=== PATIENT | male | born 1965 | race Caucasian/White ===

== ENCOUNTER → 2023-05-04 12:48 | Outpatient (CLI) | payer OTHER, SELFPAY ==
--- NOTE | ~2023-05-04 | CT_ITS ---
CT of the Abdomen and Pelvis: Indication: Hematuria Technique: 2.5 mm axial scans were obtained through the abdomen and pelvis prior to and following in travenous administration of 130 cc of Omnipaque 350. Dose reduction technique was used on this scan b y utilizing automated exposure control and iterative reconstruction technique. The dose-length produc t (DLP) was 1542.03 mGy-cm. Findings: Scans through the lung bases are unremarkable. The liver, spleen, pancreas, gallbladder, and adrenal glands are within normal limits. There is sever e bilateral hydroureteronephrosis, right worse than left, with tortuosity of the ureters. There is a small nonobstructing stone at the right upper pole on precontrast images. No evidence of aortic aneur ysm. No lymphadenopathy. No bowel obstruction or bowel wall thickening. There is no evidence to suggest acute appendicitis. Images through the pelvis were performed. Urinary bladder is markedly distended, with mild diffuse bl adder wall thickening/irregularity. Prostate gland is markedly enlarged with extensive indentation th rough the bladder base. No ascites. Impression: Severe bilateral hydroureteronephrosis with tortuous ureters, as well as distended urinary bladder wi th diffuse bladder wall trabeculation. Findings are likely related to chronic bladder obstruction. Markedly enlarged prostate gland, with extensive indentation through the bladder base. Small nonobstructing right renal stone. Reviewed, dictated and finalized at [facility]. [employer] Impression: Severe bilateral hydroureteronephrosis with tortuous ureters, as well as disten ded urinary bladder with diffuse bladder wall trabeculation. Findings are likel y related to chronic bladder obstruction. Markedly enlarged prostate gland, with extensive indentation through the bladde r base. Small nonobstructing right renal stone.
== END ==
PROVIDERS: PCP Family Medicine; Visit Provider Nurse Practitioner Family
DX: R31.0 Gross hematuria (principal); N20.0 Calculus of kidney
CPT/HCPCS: 74178; Q9967